=== PATIENT | female | born 1940 | race Asian ===

== ENCOUNTER → 2016-11-30 | Outpatient (CLI) | payer MEDICARE, OTHER ==
[~2016-11-30] MED LIST: CAND32TA2 PO; ROSU20TA PO; SITA1TAB7 PO; SYN75 PO
--- NOTE | 2016-11-30 12:41 | RADRPT ---
PROCEDURE: XR bilateral knees. CLINICAL INDICATION: Knee pain TECHNIQUE: AP weightbearing, PA weightbearing, lateral weightbearing and sunrise views of each kne e are available for review. COMPARISON: None available FINDINGS: Right knee: There is severe osteoarthrosis involving the right medial tibial femoral compartment, moderate osteo arthrosis involving the patellofemoral compartment and mild osteoarthrosis involving the lateral tib ial femoral compartment .This is associated with joint space narrowing, subchondral sclerosis and os teophytosis. There is a small suprapatellar joint effusion Left knee: There is severe osteoarthrosis involving the left medial tibial femoral compartment, moderate osteoa rthrosis involving the patellofemoral compartment and mild osteoarthrosis involving the lateral tibi al femoral compartment. This is associated with joint space narrowing, subchondral sclerosis and ost eophytosis. There is a small suprapatellar joint effusion There is otherwise normal mineralization, architecture and alignment. No fractures are identified. No osseous lesions are identified. The soft tissues are unremarkable. IMPRESSION: Severe osteoarthrosis involving the right medial tibial femoral compartment, moderate osteoarthrosis involving the patellofemoral compartment and mild osteoarthrosis involving the lateral tibial femor al compartment Severe osteoarthrosis involving the left medial tibial femoral compartment, moderate osteoarthrosis involving the patellofemoral compartment and mild osteoarthrosis involving the lateral tibial femora l compartment. Small suprapatellar joint effusions RPTAT: HGDB .Alex Morgan MD, Date Time Electronically viewed and signed by .Alex Morgan MD, MD on 11/30/2016 12:41 .B/
== END | disposition home or self-care (01) ==
LOC: HKI 11:00
PROVIDERS: ATTEND Orthopaedic Surgery
DX: M25.561 Pain in right knee (principal); M25.562 Pain in left knee; M17.0 Bilateral primary osteoarthritis of knee
CPT/HCPCS: 20610; 73564; G0463; J7327

== ENCOUNTER → 2017-02-15 | Outpatient (CLI) | payer MEDICARE, OTHER ==
--- NOTE | 2017-02-15 14:44 | RADRPT ---
PROCEDURE: Limited x-ray of both lower extremities. CLINICAL INDICATION: Bilateral leg pain. TECHNIQUE: Single frontal view of both lower extremities was obtained from the hips to the calves. COMPARISON: None. FINDINGS: There are moderate degenerative changes of the hips with joint space narrowing and osteophytes. The re are severe degenerative changes of both knees with joint space narrowing, deformity, and osteophy sandra. Left is worse than right. IMPRESSION: 1. Moderate degenerative changes of the hips. 2. Severe degenerative changes of the knees with left worse than right. RPTAT: QQ .Filemon Baires MD, MD Date Time Electronically viewed and signed by .Filemon Baires MD, on 02/15/2017 14:44 .R/
== END | disposition home or self-care (01) ==
LOC: HKI 10:51
PROVIDERS: ATTEND Orthopaedic Surgery
DX: Z01.818 Encounter for other preprocedural examination (principal); M16.0 Bilateral primary osteoarthritis of hip; M17.11 Unilateral primary osteoarthritis, right knee
CPT/HCPCS: 77073

== ENCOUNTER 2017-02-21 09:36 | Inpatient (IN) | payer MEDICARE, OTHER ==
[~2017-02-21] VITALS: Ht 152.4 cm; Wt 91.6 kg
[2017-02-21] VITALS (17 sets, daily range): BP systolic 141–186; BP diastolic 52–74; PULSE 58–76; RESP 11–22; Ht 152.4 cm; Wt 91.6 kg
[~2017-02-21 09:36] MED LIST changes: +BUPIVACAINE LIPOSOME/PF 266 MG/20 ML VIAL INFIL ONE; +CEFAZOLIN 2GM/50 ML (PMX) 50 ML X1 BEFORE INCISION IVPB ONE; +CELECOXIB 400 MG PO X1 DOSE PO ONE; +PAIN COCKTAIL-CEFUROXIME IRR ONE; +PREGABALIN 300 MG PO X1 PO ONE; +PROPOFOL 1000 MG INJ ONE; +TRANEXAMIC ACID 920 MG in SOD CHLORIDE 0.9% 100 ML IVPB ONE; +TRANEXAMIC ACID 920 MG in SOD CHLORIDE 0.9% 90.8 ML IV ONE; +oxyCODONE (CR) 10 MG TAB [oxyCONTIN] X1 DOSE PO ONE; +traMADOL 50 MG TAB X 1 DOSE PO ONE
[2017-02-21] MEDS ORDERED: CRES10 PO (10:19)
[2017-02-21] MEDS ORDERED: METF500T3 PO (10:21)
[2017-02-21] MEDS ORDERED: ALEN70TA30 PO (10:22)
[2017-02-21] MEDS ORDERED: ROCURONIUM 50 MG INJ ONE (11:02)
[2017-02-21] MEDS ORDERED: ONDANSETRON 4 MG INJ ONE (11:02)
[2017-02-21] MEDS ORDERED: NEOSTIGMINE 3 MG/3 ML SYRINGE ONE (11:02)
[2017-02-21] MEDS ORDERED: MIDAZOLAM 1 MG/ML 2 ML INJ ONE (11:02)
[2017-02-21] MEDS ORDERED: GLYCOPYRROLATE 0.4 MG INJ ONE (11:02)
[2017-02-21] MEDS ORDERED: PROPOFOL 20 ML ONE (11:02)
[2017-02-21] MEDS ORDERED: FENTAnyl 50 MCG/ML VIAL ONE (11:02)
[2017-02-21] MEDS ORDERED: CEFAZOLIN 1 GM INJ ONE (11:02)
[2017-02-21] MEDS ORDERED: DEXAMETHASONE 4 MG/ML 1 ML INJ ONE (11:02)
[2017-02-21] MEDS ORDERED: SODIUM CL BACTERIOSTATIC 30 ML INJ ONE (11:26)
[2017-02-21] MEDS ORDERED: POLYMYXIN B 500000 UNIT INJ ONE (11:26)
--- NOTE | 2017-02-21 11:56 | HPN ---
Date/Time of Note Date/Time of Note DATE: 02/21/17 TIME: 11:55 Interval H&P Admission Note Pt. seen H&P reviewed: No system changes No changes from H&P on 02/08/17 by NANY Shi MD Feb 21, 2017 11:56
[2017-02-21] MEDS: LACTATED RINGER'S 1,000 ML IV SCH ×4 (12:15→23:10)
[2017-02-21] MEDS: VANCOMYCIN 1 GM INJ ONE ×2 (13:26→13:33)
[2017-02-21] MEDS ORDERED: BACITRACIN 50000 UNITS INJ ONE (13:28)
[2017-02-21] MEDS ORDERED: LABETALOL HCL 20MG INJ IV PRN (14:00)
[2017-02-21] MEDS ORDERED: OXYCODONE/ACETAMINOPHEN (5/325) TAB PO PRN ×2 (14:00)
[2017-02-21] MEDS ORDERED: DIPHENHYDRAMINE 50 MG INJ IV PRN (14:00)
[2017-02-21] MEDS ORDERED: TRIMETHOBENZAMIDE 100 MG/ML VIAL IM PRN (14:00)
[2017-02-21] MEDS ORDERED: FENTAnyl 50 MCG/ML VIAL IV PRN ×3 (14:00)
[2017-02-21] MEDS ORDERED: EPHEDrine SULFATE 50 MG/5 ML SYG IV PRN (14:00)
[2017-02-21] MEDS ORDERED: MEPERIDINE 25 MG INJ IV PRN (14:00)
[2017-02-21] MEDS ORDERED: hydrALAzine 20 MG INJ IV PRN (14:00)
[2017-02-21] MEDS ORDERED: ONDANSETRON 4 MG INJ IV PRN ×2 (14:00→15:00)
[2017-02-21] MEDS ORDERED: MIDAZOLAM 1 MG/ML 2 ML INJ IV PRN (14:00)
[2017-02-21] MEDS ORDERED: HYDROmorphONE (0.2 MG/ML) 10ML SYG IV PRN ×3 (14:00)
[2017-02-21] MEDS ORDERED: SUGAMMADEX SODIUM 200 MG/2 ML VIAL IV ONE (14:12)
--- NOTE | 2017-02-21 14:59 | OPR ---
Date/Time of Note Date/Time of Note DATE: 02/21/17 TIME: 14:52 Operative Report Procedure Description DATE: 02/21/2017 PREOPERATIVE DIAGNOSIS: Right knee osteoarthritis POSTOPERATIVE DIAGNOSIS: Right knee osteoarthritis OPERATION PERFORMED: Right total knee arthroplasty. SURGEON: Nany Boudreaux MD TOOL AND DIE DESIGNER: Dakotah Lockhart PA-C COMPONENTS USED: DePuy attune size 4 femoral component, size 4 tibial baseplate , 6 mm polyethylene insert, 35 patella button ANESTHESIA: Spinal plus general endotracheal intubation, plus femoral nerve catheter. ANESTHESIOLOGIST: Chava Allen M.D. TOURNIQUET TIME: 59 minutes. ESTIMATED BLOOD LOSS: 50 cc INTRAVENOUS FLUIDS: 2000 cc of crystalloid SPECIMENS: Bone and soft tissue. DRAINS: Hemovac x1. COMPLICATIONS: None. DISPOSITION: The patient tolerated the procedure well and was taken to the recovery room in stable condition. INDICATIONS: The patient is a 76-year-old woman who has had worsening pain in her right knee with radiographic evidence of severe osteoarthritis. She has failed nonsurgical means of treatment to control her pain including activity modifications, pain medications, and intra-articular injections. Despite these measures she has had worsening pain and I feel she will benefit from a total knee arthroplasty. The risks, benefits, and alternatives of the procedure were explained in detail to the patient. I explained the risks of the surgery to include but not be limited to, bleeding and possible need for blood transfusion; infection; pain; stiffness; neurovascular injury with possible numbness, weakness, and/or paralysis anywhere from the knee down to the toes; fracture; instability; dislocation; wear and/or loosening of the prosthesis and possible need for future revision; blood clots; pulmonary embolism; and anesthetic complications such as heart attack, stroke, GI bleed, pneumonia, and/or . Ample time was allowed for the patient to ask questions, all of which were addressed and answered. The patient understood the risks involved and wished to proceed. Informed consent was signed prior to the procedure. PROCEDURE: The patient's right knee was initialed with a marking pen in the preoperative area to identify the correct operative site. The patient was brought to the operating room and transferred from the [facility] to the operating table where a spinal anesthetic was administered. The patient was then anesthetized and intubated. A Parker catheter was placed. A timeout was performed to confirm that the right leg was the correct operative site. The patient was given 2 g of Ancef within one hour prior to the procedure. A tourniquet was placed on the operative proximal thigh. The operative knee and lower extremity were prepped and draped in the usual sterile fashion. The operative lower extremity was elevated and exsanguinated with an Esmarch tourniquet. The proximal thigh tourniquet was inflated to 300 mmHg. The knee was flexed. A midline incision was made and carried down through the subcutaneous tissue and fat with sharp dissection. Limited medial and lateral flaps were raised. A median parapatellar arthrotomy approach was performed. Synovial fluid was normal in color and consistency. The patella was everted and the knee flexed. There were severe tricompartmental osteoarthritic changes noted. A medial release was performed at the joint line to the midcoronal plane. The ACL and PCL and remnants of the menisci were excised. The stepped drill was used to open up the femoral canal which was irrigated and sucked dry. The intramedullary guide david was passed up the femur, and the distal cutting block was pinned into place for a 6 degree valgus cut, taking 10 mm of bone off distally. The oscillating saw was used to make the cut. The tibia was subluxed anteriorly. The tibial cutoff jig was placed over the center of the talus distally and over the junction of the medial and middle third of the tibial tubercle proximally. The guide was pinned into place and the oscillating saw was used to make the cut. The tibia was sized. The extension gap was checked and accommodated a 6 mm spacer block with the knee in full extension. There was no varus or valgus instability. At this point, the femur was sized with the posterior referencing guide. Two holes were drilled in 3 degrees of external rotation. The two holes were in line with the transepicondylar axis, perpendicular to Juan Luis's line, and in line with the tibial cutoff jig brought up with the knee flexed 90 degrees and tensed with 2 lamina spreaders, suggesting the femoral rotation was correct. The four-in-one cutting block was pinned into place. The anterior and posterior cuts and chamfer cuts were made with the oscillating saw. The flexion gap was checked and accommodated the 6 mm spacer block at 90 degrees. There was no varus or valgus instability, suggesting the flexion and extension gaps were now equal. The central box was cut out on the femur. The tibia was drilled and punched in proper rotation. Trial components were placed into position with a trial insert. The patella was cut down to 14 mm and sized. Three holes were drilled and the trial button placed in position. With all the trials now in place, the knee was taken through range of motion and came to full extension as evidenced by the fact that with the foot on my abdomen and axial loading, there was no tendency for the knee to flex. The knee was able to be flexed to 125 degrees with good patellar tracking with no lateral tilt or subluxation. At this point, I was satisfied with the overall range of motion, stability, and patellar tracking. The trials were removed. The real components were opened. Two bags of cement were mixed, one with and one without premixed antibiotic. The knee was irrigated with antibiotic saline and sucked dry. Once the cement was in a doughy stage, the real components were cemented into place. The knee was held in full extension, and the patellar component was held with a patellar clamp. All excess cement was removed with curettes. As the cement was hardening, the synovial/capsular layer was infiltrated with a mixture of 150 mg of 0.5% Bupivacaine, 8 mg of Duramorph, 300 mcg of epinephrine, 30 mg of Toradol, 100 mcg of clonidine, 750 mg of cefuroxime and 86 mL of normal saline, followed by an injection of 266 mg of liposomal Bupivacaine. A Hemovac drain was placed in the deep portion of the wound and brought out the anterolateral thigh. Once the cement was completely hardened, the trial liner was removed, and the real insert was opened. The tourniquet was let down, and there was good hemostasis. The knee was then irrigated with a mixture of betadine/saline and then antibiotic saline with pulsatile lavage. The real insert was impacted into the tibia and reduced onto to the femur. The arthrotomy was closed with a few interrupted #1 Ethibond in a figure-of- eight fashion, and then closed in a watertight fashion with a running #2 Stratafix suture. Knee flexion was checked against gravity and came to 125 degrees. The subcutaneous layer was irrigated and closed with 2-0 Statafix, and then 3-0 Vicryl and then jose de jesus on the skin. The wound was covered with an occlusive dressing, and secured with cast padding and a bias dressing. The drain was secured with 3-0 nylon. The sponge and needle counts were correct at the end of the case. The patient was then awakened, extubated, and taken to the recovery room in stable condition. NANY BOUDREAUX MD Feb 21, 2017 14:58
[2017-02-21] MEDS ORDERED: ASPIRIN (EC) 325 MG TAB PO ONE (15:00)
[2017-02-21] MEDS ORDERED: NA PHOSPHATE/BIPHOS 133 ML ENEMA PR PRN (15:00)
[2017-02-21] MEDS ORDERED: HYDROCODONE/APAP (7.5/325) TAB PO PRN (15:00)
[2017-02-21] MEDS ORDERED: MAGNESIUM HYDROXIDE 30ML CUP PO PRN (15:00)
[2017-02-21] MEDS ORDERED: DIPHENHYDRAMINE 25 MG CAP PO PRN (15:00)
[2017-02-21] MEDS ORDERED: HYDROmorphONE 1 MG/ML SYG IV PRN (15:00)
[2017-02-21] MEDS ORDERED: BISACODYL 10 MG SUPP PR PRN (15:00)
[2017-02-21] MEDS ORDERED: NACL 0.9% 3 ML SYG IV SCH (15:00)
[2017-02-21 15:23] LABS: HEMATOCRIT 34.9 % (37.0-47.0); HEMOGLOBIN 11.1 g/dl (12.0-16.0)
--- NOTE | 2017-02-21 15:26 | PN ---
Date/Time of Note Date/Time of Note DATE: 02/21/17 TIME: 15:25 Assessment/Plan Lines/Catheters IV Catheter Type (from Nrsg): Peripheral IV Assessment/Plan Assessment/Plan Stable in PACU, s/p right TKA -continue Ancef -pain meds as needed -ASA/SCDs -OOB with PT -medicine to manage diabetic control -check AM labs -monitor drain -d/c kidd in AM XR of the right knee is pending at this time Subjective 24 Hr Interval Summary Stable in PACU. Denies pain. Moving all extremities. Exam/Review of Systems Vital Signs Vitals Vital Signs Date Time Temp Pulse Resp B/P Pulse Ox O2 Delivery O2 Flow Rate FiO2 02/21/17 15:01 98.4 02/21/17 14:50 72 22 148/63 100 Nasal Cannula 2.0 Exam Free Text/Dictation Hemovac: minimal Dressing dry Incision clean, dry, and intact without redness or drainage Thigh soft 5/5 Quadriceps, Tibialis Anterior, EHL, Gastroc, Soleus, Peroneals Normal sensation Palpable DT/PT, CR <2 sec No distal edema WILLIAM GARCÍA PA-C Feb 21, 2017 15:26
[2017-02-21] MEDS: CEFAZOLIN 2 GM/50 ML (PMX) 50 ML IVPB SCH ×2 (15:36→23:00)
[2017-02-21 15:43] LABS: CALCIUM 8.4 mg/dl (8.4-10.2); CREATININE 1.1 mg/dl (0.44-1.00); POTASSIUM 4.3 mmol/L (3.5-5.1)
[2017-02-21] MEDS ORDERED: EXPAREL NOTE (BUPIVICAINE LIPOSOMAL) XX SCH (16:00)
--- NOTE | 2017-02-21 16:04 | RADRPT ---
PROCEDURE: Right knee radiographs. CLINICAL INDICATION: Right knee pain. Postop. TECHNIQUE: Two views. Frontal and lateral. COMPARISON: 11/30/2016. FINDINGS: There is no fracture or dislocation. Anterior skin jose de jesus and surgical drain are noted. There is a total right knee arthroplasty which appears satisfactory. There is no lytic or blastic lesion. There is no joint effusion. IMPRESSION: 1. Satisfactory postoperative appearance of the right knee. RPTAT: QQ .Filemon Baires MD, MD Date Time Electronically viewed and signed by .Filemon Baires MD, MD on 02/21/2017 16:03 .R/
[2017-02-21] MEDS ORDERED: GLUCOSE GEL 15 GRAM TUBE BUCCAL PRN (17:00)
[2017-02-21] MEDS ORDERED: GLUCAGON 1 MG INJ IM PRN (17:00)
[2017-02-21] MEDS ORDERED: DEXTROSE 50% 50 ML SYRINGE IV PRN ×2 (17:00)
[2017-02-21] MEDS ORDERED: GLUCOSE GEL 15 GRAM TUBE PO PRN ×2 (17:00)
[2017-02-21] MEDS: traMADol 50 MG TAB PO SCH ×2 (17:57→23:49)
[2017-02-21] MEDS: PANTOPRAZOLE (EC) 40 MG TAB PO SCH (18:00)
[2017-02-21] MEDS ORDERED: TRANEXAMIC ACID 920 MG in SOD CHLORIDE 0.9% 100 ML IVPB ONE ×2 (18:00→21:00)
[2017-02-21] MEDS: INSULIN ASPART [NOVOLOG] 3 ML PEN SC SCH (21:00)
[2017-02-21] MEDS: DOCUSATE SODIUM 100 MG CAP PO SCH (21:51)
[2017-02-21] MEDS: PREGABALIN 50 MG CAP PO SCH (21:51)
[2017-02-21] MEDS: ATORVASTATIN 40 MG TAB PO SCH (21:51)
[2017-02-22] MEDS: LACTATED RINGER'S 1,000 ML IV SCH (04:46)
[2017-02-22] MEDS: PANTOPRAZOLE (EC) 40 MG TAB PO SCH ×2 (05:44→17:50)
[2017-02-22] MEDS: traMADol 50 MG TAB PO SCH ×5 (05:44→23:35)
[2017-02-22] MEDS: CEFAZOLIN 2 GM/50 ML (PMX) 50 ML IVPB SCH (05:44)
[2017-02-22 05:50] LABS: HEMATOCRIT 34.2 % (37.0-47.0); HEMOGLOBIN 11.1 g/dl (12.0-16.0)
[2017-02-22 06:15] LABS: CREATININE 1.08 mg/dl (0.44-1.00)
[2017-02-22 06:16] VITALS: BP 123/55; PULSE 66; RESP 18
[2017-02-22 07:00] VITALS: BP 113/56; RESP 18
[2017-02-22] MEDS: INSULIN ASPART [NOVOLOG] 3 ML PEN SC SCH ×4 (07:20→20:50)
--- NOTE | 2017-02-22 07:23 | PDOCDIS ---
Discharge Instructions DIAGNOSIS Discharge Diagnosis s/p right TKA CONDITION Patient Condition: Good HOME CARE INSTRUCTIONS: Diet Instructions: Regular ACTIVITY: Activity Restrictions: Slowly Increase Activity Rest between Activity Avoid heavy lifting Do not operate Machinery Do not operate Power Tool Avoid Heavy Housework Keep Limb Elevated Bathing Restrictions: Shower FOLLOW UP/APPOINTMENTS Follow-up Plan follow up in the office on 03/04/17 OTHER ORDERS: Other Orders: S/P TKA Physical Therapy: Three times per week at home x 2 weeks Daily in Rehab/SNF WB STATUS: WBAT 1. Strengthening exercises for both upper and un-operated lower extremities. 2. Gait training with front wheeled walker 3. Active range of motion exercises to operative knee. 4. When not working on knee range of motion exercises, distal towel roll under operative ankle/distal calf to promote full extension. 5. DO NOT PUT ANYTHING BEHIND OPERATIVE KNEE!!! 6. Quadriceps and hamstring strengthening. 7. May switch to cane in contra lateral hand 6 weeks after surgery. 8. Physical Therapy can open case if nursing is not available. 9. Use Ice Machine as instructed from date of surgery while at rest 3X/day. 10. Patient requires mobile SCDs to reduce risk of developing DVT following TKA. Patient will use the mobile SCDs for 30 days postoperatively. Bathing assistance by home health aide twice weekly if Medicare patient. Occupational Therapy: Evaluation for assistive devices and ADL training. Wound Care: Keep incision dry & covered with Tegaderm until first visit with Dr. Queen Anticoagulation Orders: Enteric Coated Aspirin 325 mg po bid x 6 weeks from date of surgery Follow-up:Call for an appointment with Dr. Queen in 1 week after discharged from hospital at DME Orders: AYLIN, 3-in-1 Commode, Polar ice machine, Mobile SCDs WILLIAM GARCÍA PA-C Feb 22, 2017 07:23
[2017-02-22] MEDS ORDERED: ASPI325T32 PO (07:24)
[2017-02-22] MEDS ORDERED: HYDR-3605 PO (07:24)
[2017-02-22] MEDS ORDERED: PANT40TA4 PO (07:24)
[2017-02-22] MEDS ORDERED: PREG50CA PO (07:24)
[2017-02-22] MEDS ORDERED: TRAM50TA2 PO (07:24)
[2017-02-22] MEDS: ASPIRIN (EC) 325 MG TAB PO SCH ×2 (08:16→20:50)
[2017-02-22] MEDS: LOSARTAN 50 MG TAB PO SCH (08:17)
[2017-02-22] MEDS: LEVOTHYROXINE 75 MCG TAB PO SCH (08:17)
[2017-02-22] MEDS: PREGABALIN 50 MG CAP PO SCH ×2 (08:17→20:53)
[2017-02-22] MEDS: DOCUSATE SODIUM 100 MG CAP PO SCH ×2 (08:17→20:50)
[2017-02-22] MEDS: metFORMIN 500 MG TAB PO SCH ×2 (08:18→18:42)
--- NOTE | 2017-02-22 09:50 | CONS ---
Date/Time of Note Date/Time of Note DATE: 02/22/17 TIME: 09:48 Assessment/Plan Assessment/Plan Additional Assessment/Plan 1. Doing well psot op right knee replacement. 2. HBP, controlled 3. DM, sugars acceptable 4. Mild hyponatremia, Mora ordered and IV changed, mild fluid restriction ordered Consultation Date/Type/Reason Admit Date/Time Feb 21, 2017 at 09:36 Initial Consult Date Detailed Summary Respiratory: No cough, No shortness of breath Gastrointestinal: no complaints Genitourinary: no complaints Musculoskeletal: bone/joint pain (mild right knee pain) Exam/Review of Systems Vital Signs Vitals Vital Signs Date Time Temp Pulse Resp B/P Pulse Ox O2 Delivery O2 Flow Rate FiO2 02/22/17 07:00 97.5 63 18 113/56 98 02/22/17 06:16 Room Air 02/21/17 14:50 2.0 Intake and Output 02/21/17 02/21/17 02/22/17 15:00 23:00 07:00 Intake Total 0 ml 300 ml 1150 ml Output Total 345 ml 1075 ml 620 ml Balance -345 ml -775 ml 530 ml Exam Neck: No jvd Respiratory: clear to auscultation Cardiovascular: regular rate and rhythm Gastrointestinal: soft Extremities: No edema (and no calf tend) Results Result Diagram: 02/22/17 0458 02/22/17 0458 Results 24 hrs Laboratory Tests Test 02/21/17 11:37 02/21/17 14:52 02/21/17 15:15 02/21/17 21:54 Bedside Glucose 107 131 165 Hemoglobin 11.1 L Hematocrit 34.9 L Sodium Level 137 Potassium Level 4.3 Chloride Level 109 Carbon Dioxide Level 21 Anion Gap 11 Blood Urea Nitrogen 19 Creatinine 1.10 H Glucose Level 127 Calcium Level 8.4 Test 02/22/17 04:58 02/22/17 07:59 Hemoglobin 11.1 L Hematocrit 34.2 L Sodium Level 132 L Potassium Level 5.0 Chloride Level 107 Carbon Dioxide Level 21 Anion Gap 9 Blood Urea Nitrogen 20 Creatinine 1.08 H Glucose Level 133 Calcium Level 8.0 L Bedside Glucose 136 Medications Medications Current Medications Levothyroxine Sodium (Synthroid) 75 mcg DAILY PO Last administered on t 08:17; Admin Dose 75 MCG; Start 02/22/17 at 09:00 Losartan Potassium (Cozaar) 100 mg DAILY PO ; Start 02/22/17 at 09:00 Atorvastatin Calcium 40 mg 40 mg DAILY@21 PO Last administered on 02/21/17 21: 51; Admin Dose 40 MG; Start 02/21/17 at 21:00 Lactated Ringer's (Lr) 1,000 ml @ 125 mls/hr Q8H IV Last administered on 04:46; Admin Dose 125 MLS/HR; Start 02/21/17 at 14:56 Tramadol HCl (Ultram) 50 mg Q6 PO Last administered on 02/22/17 05:44; Admin Dose 50 MG; Start 02/21/17 at 12:00; Stop 02/24/17 at 11:59 Hydromorphone HCl (Dilaudid) 1 mg Q3H PRN IV PAIN LEVEL 8-10; Start 02/21/17 at 15:00 Ondansetron HCl (Zofran Inj) 4 mg Q6H PRN IV NAUSEA AND/OR VOMITING; Start at 15:00 Bisacodyl (Dulcolax Supp) 10 mg Q12H PRN [place] CONSTIPATION; Start 02/21/17 at 15: 00 Magnesium Hydroxide (Milk Of Mag) 30 ml BID PRN PO CONSTIPATION; Start at 15:00 Sodium Biphosphate/ Sodium Phosphate (Fleet Enema) 133 ml DAILY PRN [place] CONSTIPATION; Start 02/21/17 at 15:00 Docusate Sodium (Colace) 100 mg BID PO Last administered on 02/22/17 08:17; Admin Dose 100 MG; Start 02/21/17 at 21:00 Diphenhydramine HCl (Benadryl) 25 mg Q6H PRN PO PRURITUS; Start 02/21/17 at 15: 00 Acetaminophen/ Hydrocodone Bitart ([place] (7.5-325)) 1 tab Q4H PRN PO PAIN LEVEL 1-3; Start 02/21/17 at 15:00 Acetaminophen/ Hydrocodone Bitart ([place] (7.5-325)) 2 tab Q4H PRN PO PAIN LEVEL 4-7; Start 02/21/17 at 15:00 Aspirin (Ecotrin) 325 mg BID PO Last administered on 02/22/17 08:16; Admin Dose 325 MG; Start 02/22/17 at 09:00 Pantoprazole (Protonix Tab) 40 mg BID@06,18 PO Last administered on 02/22/17 05:44; Admin Dose 40 MG; Start 02/21/17 at 18:00 Pregabalin (Lyrica) 50 mg BID PO Last administered on 02/22/17 08:17; Admin Dose 50 MG; Start 02/21/17 at 21:00 Miscellaneous Information 1 ea NOTE XX ; Start 02/21/17 at 17:00 Glucose (Glutose) 15 gm Q15M PRN PO DECREASED GLUCOSE; Start 02/21/17 at 17:00 Glucose (Glutose) 22.5 gm Q15M PRN PO DECREASED GLUCOSE; Start 02/21/17 at 17: 00 Dextrose (D50w Syringe) 25 ml Q15M PRN IV DECREASED GLUCOSE; Start 02/21/17 at 17:00 Dextrose (D50w Syringe) 50 ml Q15M PRN IV DECREASED GLUCOSE; Start 02/21/17 at 17:00 Glucagon (Glucagen) 1 mg Q15M PRN IM DECREASED GLUCOSE; Start 02/21/17 at 17:00 Glucose (Glutose) 15 gm Q15M PRN BUCCAL DECREASED GLUCOSE; Start 02/21/17 at 17 :00 TAN SCHUMACHER MD Feb 22, 2017 09:50
[2017-02-22 09:51] LABS: ADD UMIC YES; UR ASCORBIC ACID NEGATIVE (NEGATIVE); UR BILIRUBIN (Dip) NEGATIVE (NEGATIVE); UR BLOOD (Dip) 1+ mg/dL (NEGATIVE); UR CLARITY CLEAR (CLEAR); UR COLOR YELLOW (YELLOW); UR GLUCOSE (Dip) NEGATIVE (NEGATIVE); UR KETONES (Dip) NEGATIVE (NEGATIVE); UR LEUKOCYTE ESTERASE (Dip) NEGATIVE Leu/ul (NEGATIVE); UR NITRITE (Dip) NEGATIVE (NEGATIVE); UR RBC 10 /HPF (0-5); UR SPECIFIC GRAVITY (Dip) 1.023 (1.003-1.030); UR TOTAL PROTEIN (Dip) 1+ mg/dl (NEGATIVE); UR UROBILINOGEN (Dip) NEGATIVE (NEGATIVE)
[2017-02-22] MEDS: SOD CHLORIDE 0.9% 1,000 ML IV SCH ×3 (10:00→23:00)
--- NOTE | 2017-02-22 12:09 | PN ---
Date/Time of Note Date/Time of Note DATE: 02/22/17 TIME: 12:07 Assessment/Plan Lines/Catheters IV Catheter Type (from Nrsg): Peripheral IV Parker in Place (from Nrsg): Yes Assessment/Plan Assessment/Plan Stable POD #1, s/p right TKA -d/c Ancef -pain meds as needed -ASA/SCDs -OOB with PT -check AM labs -drain removed -discharge planning. Will plan to go home upon discharge Subjective 24 Hr Interval Summary No acute overnight events. Denies pain. Did not start PT yesterday. VSS, afebrile. Will plan to go home upon discharge. Exam/Review of Systems Vital Signs Vitals Vital Signs Date Time Temp Pulse Resp B/P Pulse Ox O2 Delivery O2 Flow Rate FiO2 02/22/17 07:00 97.5 63 18 113/56 98 02/22/17 06:16 Room Air 02/21/17 14:50 2.0 Intake and Output 02/21/17 02/21/17 02/22/17 15:00 23:00 07:00 Intake Total 0 ml 300 ml 1150 ml Output Total 345 ml 1075 ml 620 ml Balance -345 ml -775 ml 530 ml Exam Free Text/Dictation Dressing dry Incision clean, dry, and intact without redness or drainage Thigh soft 5/5 Quadriceps, Tibialis Anterior, EHL, Gastroc, Soleus, Peroneals Normal sensation Palpable DT/PT, CR <2 sec No distal edema Results Result Diagram: 02/22/17 0458 02/22/17 0458 WILLIAM GARCÍA PA-C Feb 22, 2017 12:08
[2017-02-22 12:17] VITALS: BP 135/63; PULSE 63; RESP 16
[2017-02-22] MEDS: HYDROCODONE/APAP (7.5/325) TAB PO PRN (15:00)
--- NOTE | 2017-02-22 18:25 | RADRPT ---
PROCEDURE: US right lower extremity veins. CLINICAL INDICATION: Right leg pain and swelling. TECHNIQUE: Multiple longitudinal and transverse images of the right lower extremity veins were obt ained with tobin scale and color Doppler imaging. The common femoral vein, femoral vein, and poplitea l vein were evaluated. 2D grayscale measurements with compression sonography, pulsed Doppler, color Doppler, and pulsed Doppler with augmentation. COMPARISON: No prior studies are available for comparison. FINDINGS: The right common femoral, femoral and popliteal veins are normally compressible throughout. Color f low demonstrates normal filling of the vessels. Normal waveforms are visualized and there is normal response to augmentation. IMPRESSION: 1. No evidence of deep vein thrombosis involving the right lower extremity. RPTAT: QQ .Filemon Baires MD, MD Date Time Electronically viewed and signed by .Filemon Baires MD, on 02/22/2017 18:25 .R/
[2017-02-22] MEDS: ATORVASTATIN 40 MG TAB PO SCH (20:50)
[2017-02-23 05:48] LABS: HEMATOCRIT 32.7 % (37.0-47.0); HEMOGLOBIN 10.5 g/dl (12.0-16.0)
[2017-02-23] MEDS: PANTOPRAZOLE (EC) 40 MG TAB PO SCH ×2 (05:49→17:52)
[2017-02-23] MEDS: traMADol 50 MG TAB PO SCH ×4 (05:50→23:41)
[2017-02-23] MEDS: SOD CHLORIDE 0.9% 1,000 ML IV SCH ×2 (06:00→16:28)
[2017-02-23 07:00] LABS: CALCIUM 7.8 mg/dl (8.4-10.2); CREATININE 1.21 mg/dl (0.44-1.00); MAGNESIUM 1.5 mg/dl (1.7-2.5); POTASSIUM 5.5 mmol/L (3.5-5.1)
[2017-02-23] MEDS: INSULIN ASPART [NOVOLOG] 3 ML PEN SC SCH ×4 (07:20→21:00)
[2017-02-23 08:06] VITALS: BP 108/54; RESP 14
[2017-02-23] MEDS: DOCUSATE SODIUM 100 MG CAP PO SCH ×2 (08:54→21:15)
[2017-02-23] MEDS: PREGABALIN 50 MG CAP PO SCH ×2 (08:55→21:15)
[2017-02-23] MEDS: ASPIRIN (EC) 325 MG TAB PO SCH ×2 (08:55→21:16)
[2017-02-23] MEDS: LOSARTAN 50 MG TAB PO SCH (08:55)
[2017-02-23] MEDS: LEVOTHYROXINE 75 MCG TAB PO SCH (08:55)
[2017-02-23] MEDS: metFORMIN 500 MG TAB PO SCH ×2 (08:59→17:51)
[2017-02-23] MEDS: HYDROCODONE/APAP (7.5/325) TAB PO PRN ×3 (09:05→22:12)
--- NOTE | 2017-02-23 10:47 | PN ---
Date/Time of Note Date/Time of Note DATE: 02/23/17 TIME: 10:46 Assessment/Plan Lines/Catheters IV Catheter Type (from Nrsg): Peripheral IV Parker in Place (from Nrsg): Yes Assessment/Plan Assessment/Plan POD # 2. Stable. -OOB with PT -Pain meds -ASA/SCDs -Plan for d/c to home tomorrow Subjective 24 Hr Interval Summary Doing well. Had some right calf "tightness" last evening. Doppler done and negative for DVT. Feels better this AM. Exam/Review of Systems Vital Signs Vitals Vital Signs Date Time Temp Pulse Resp B/P Pulse Ox O2 Delivery O2 Flow Rate FiO2 02/23/17 08:06 98.0 74 14 108/54 100 02/22/17 12:17 Room Air 02/21/17 14:50 2.0 Intake and Output 02/22/17 02/22/17 02/23/17 15:00 23:00 07:00 Intake Total 1350 ml 1160 ml Output Total 3 ml Balance 1350 ml 1157 ml Exam Free Text/Dictation Dressing dry Incision clean, dry, and intact without redness or drainage 5/5 Tibialis Anterior, EHL, Gastroc Soleus, Peroneals Normal sensation Palpable DP/PT, CR < 2 Sec No distal edema Calf soft, negative Ari's Results Result Diagram: 02/23/17 0501 02/23/17 0435 NANY BOUDREAUX MD Feb 23, 2017 10:47
--- NOTE | 2017-02-23 11:29 | CONS ---
Date/Time of Note Date/Time of Note DATE: 02/23/17 TIME: 11:26 Assessment/Plan Assessment/Plan Additional Assessment/Plan 1. stable post op course 2. HBP, controlled 3. DM, sugars controlled 4. Hyponatremia - resolved; d/c fluid restriction Consultation Date/Type/Reason Admit Date/Time Feb 21, 2017 at 09:36 Initial Consult Date 24 HR Interval Summary Free Text/Dictation Doing well, no acute complaints. Exam/Review of Systems Vital Signs Vitals Vital Signs Date Time Temp Pulse Resp B/P Pulse Ox O2 Delivery O2 Flow Rate FiO2 02/23/17 08:06 98.0 74 14 108/54 100 02/22/17 12:17 Room Air 02/21/17 14:50 2.0 Intake and Output 02/22/17 02/22/17 02/23/17 15:00 23:00 07:00 Intake Total 1350 ml 1160 ml Output Total 3 ml Balance 1350 ml 1157 ml Exam Respiratory: clear to auscultation, normal air movement Cardiovascular: nl pulses, regular rate and rhythm Results Result Diagram: 02/23/17 0501 02/23/17 0435 Results 24 hrs Laboratory Tests Test 02/22/17 12:22 02/22/17 15:45 02/22/17 17:48 02/22/17 20:49 Bedside Glucose 152 123 115 Urine Random Sodium 44 Test 02/23/17 04:35 02/23/17 05:01 02/23/17 08:51 Sodium Level 137 Potassium Level 5.5 H Chloride Level 106 Carbon Dioxide Level 20 L Anion Gap 17 H Blood Urea Nitrogen 27 H Creatinine 1.21 H Glucose Level 92 # Calcium Level 7.8 L Phosphorus Level 3.0 Magnesium Level 1.5 L Hemoglobin 10.5 L Hematocrit 32.7 L Bedside Glucose 91 Medications Medications Current Medications Levothyroxine Sodium (Synthroid) 75 mcg DAILY PO Last administered on 08:55; Admin Dose 75 MCG; Start 02/22/17 at 09:00 Losartan Potassium (Cozaar) 100 mg DAILY PO Last administered on 02/23/17 08: 55; Admin Dose 100 MG; Start 02/22/17 at 09:00 Atorvastatin Calcium (Lipitor) 40 mg DAILY@21 PO Last administered on 20:50; Admin Dose 40 MG; Start 02/21/17 at 21:00 Tramadol HCl (Ultram) 50 mg Q6 PO Last administered on 02/23/17 05:50; Admin Dose 50 MG; Start 02/21/17 at 12:00; Stop 02/24/17 at 11:59 Hydromorphone HCl (Dilaudid) 1 mg Q3H PRN IV PAIN LEVEL 8-10; Start 02/21/17 at 15:00 Ondansetron HCl (Zofran Inj) 4 mg Q6H PRN IV NAUSEA AND/OR VOMITING; Start at 15:00 Bisacodyl (Dulcolax Supp) 10 mg Q12H PRN [place] CONSTIPATION; Start 02/21/17 at 15: 00 Magnesium Hydroxide (Milk Of Mag) 30 ml BID PRN PO CONSTIPATION; Start at 15:00 Sodium Biphosphate/ Sodium Phosphate (Fleet Enema) 133 ml DAILY PRN [place] CONSTIPATION; Start 02/21/17 at 15:00 Docusate Sodium (Colace) 100 mg BID PO Last administered on 02/23/17 08:54; Admin Dose 100 MG; Start 02/21/17 at 21:00 Diphenhydramine HCl (Benadryl) 25 mg Q6H PRN PO PRURITUS; Start 02/21/17 at 15: 00 Acetaminophen/ Hydrocodone Bitart ([place] (7.5-325)) 1 tab Q4H PRN PO PAIN LEVEL 1-3 Last administered on 02/23/17 09:05; Admin Dose 1 TAB; Start at 15:00 Acetaminophen/ Hydrocodone Bitart ([place] (7.5-325)) 2 tab Q4H PRN PO PAIN LEVEL 4-7; Start 02/21/17 at 15:00 Aspirin (Ecotrin) 325 mg BID PO Last administered on 02/23/17 08:55; Admin Dose 325 MG; Start 02/22/17 at 09:00 Pantoprazole (Protonix Tab) 40 mg BID@,18 PO Last administered on 02/23/17 05:49; Admin Dose 40 MG; Start 02/21/17 at 18:00 Pregabalin (Lyrica) 50 mg BID PO Last administered on 02/23/17 08:55; Admin Dose 50 MG; Start 02/21/17 at 21:00 Miscellaneous Information 1 ea NOTE XX ; Start 02/21/17 at 17:00 Glucose (Glutose) 15 gm Q15M PRN PO DECREASED GLUCOSE; Start 02/21/17 at 17:00 Glucose (Glutose) 22.5 gm Q15M PRN PO DECREASED GLUCOSE; Start 02/21/17 at 17: 00 Dextrose (D50w Syringe) 25 ml Q15M PRN IV DECREASED GLUCOSE; Start 02/21/17 at 17:00 Dextrose (D50w Syringe) 50 ml Q15M PRN IV DECREASED GLUCOSE; Start 02/21/17 at 17:00 Glucagon (Glucagen) 1 mg Q15M PRN IM DECREASED GLUCOSE; Start 02/21/17 at 17:00 Glucose 15 gm 15 gm Q15M PRN BUCCAL DECREASED GLUCOSE; Start 02/21/17 at 17:00 Sodium Chloride (NS) 1,000 ml @ 100 mls/hr Q10H IV Last administered on t 23:00; Admin Dose 100 MLS/HR; Start 02/22/17 at 10:00 SINCERE FUENTES MD Feb 23, 2017 11:29
[2017-02-23 19:05] VITALS: BP 140/63; RESP 18
[2017-02-23] MEDS: ATORVASTATIN 40 MG TAB PO SCH (21:15)
[2017-02-24] MEDS: SOD CHLORIDE 0.9% 1,000 ML IV SCH ×2 (02:00→12:00)
[2017-02-24] MEDS: HYDROCODONE/APAP (7.5/325) TAB PO PRN (02:45)
[2017-02-24] MEDS: PANTOPRAZOLE (EC) 40 MG TAB PO SCH (05:56)
[2017-02-24] MEDS: traMADol 50 MG TAB PO SCH (05:57)
[2017-02-24 06:02] LABS: HEMATOCRIT 32.8 % (37.0-47.0); HEMOGLOBIN 10.4 g/dl (12.0-16.0)
[2017-02-24 06:21] LABS: CREATININE 1.16 mg/dl (0.44-1.00); POTASSIUM 4.8 mmol/L (3.5-5.1)
[2017-02-24 07:45] VITALS: BP 136/60; RESP 18
[2017-02-24] MEDS: INSULIN ASPART [NOVOLOG] 3 ML PEN SC SCH ×2 (08:25→12:45)
[2017-02-24] MEDS: DOCUSATE SODIUM 100 MG CAP PO SCH (09:02)
[2017-02-24] MEDS: ASPIRIN (EC) 325 MG TAB PO SCH (09:02)
[2017-02-24] MEDS: PREGABALIN 50 MG CAP PO SCH (09:02)
[2017-02-24] MEDS: LEVOTHYROXINE 75 MCG TAB PO SCH (09:03)
[2017-02-24] MEDS: metFORMIN 500 MG TAB PO SCH (09:03)
[2017-02-24] MEDS: LOSARTAN 50 MG TAB PO SCH (09:03)
--- NOTE | 2017-02-24 10:03 | CONS ---
Date/Time of Note Date/Time of Note DATE: 02/24/17 TIME: 10:02 Assessment/Plan Assessment/Plan Additional Assessment/Plan 1. stable post op course 2. HBP, controlled 3. DM, sugars controlled 4. Hyponatremia - resolved; d/gali fluid restriction 5. Stable for discharge from medical standpoint Consultation Date/Type/Reason Admit Date/Time Feb 21, 2017 at 09:36 24 HR Interval Summary Free Text/Dictation Feeling well, ambulated yesterday and anticipating PT today Exam/Review of Systems Vital Signs Vitals Vital Signs Date Time Temp Pulse Resp B/P Pulse Ox O2 Delivery O2 Flow Rate FiO2 02/24/17 07:45 98.0 71 18 136/60 97 02/22/17 12:17 Room Air 02/21/17 14:50 2.0 Intake and Output 02/23/17 02/23/17 02/24/17 15:00 23:00 07:00 Intake Total 1600 ml 1430 ml Output Total 3 ml 2 ml Balance 1597 ml 1428 ml Exam Respiratory: clear to auscultation, normal air movement Cardiovascular: nl pulses, regular rate and rhythm Results Result Diagram: 02/24/17 0439 02/24/17 0439 Results 24 hrs Laboratory Tests Test 02/23/17 12:43 02/23/17 17:50 02/23/17 21:15 02/24/17 04:39 Bedside Glucose 96 109 118 Hemoglobin 10.4 L Hematocrit 32.8 L Sodium Level 136 Potassium Level 4.8 Chloride Level 108 Carbon Dioxide Level 23 Anion Gap 10 # Blood Urea Nitrogen 24 H Creatinine 1.16 H Glucose Level 94 Calcium Level 8.0 L Test 02/24/17 08:27 Bedside Glucose 85 Medications Medications Current Medications Levothyroxine Sodium (Synthroid) 75 mcg DAILY PO Last administered on 09:03; Admin Dose 75 MCG; Start 02/22/17 at 09:00 Losartan Potassium (Cozaar) 100 mg DAILY PO Last administered on 02/24/17 09: 03; Admin Dose 100 MG; Start 02/22/17 at 09:00 Atorvastatin Calcium (Lipitor) 40 mg DAILY@21 PO Last administered on 21:15; Admin Dose 40 MG; Start 02/21/17 at 21:00 Tramadol HCl (Ultram) 50 mg Q6 PO Last administered on 02/24/17 05:57; Admin Dose 50 MG; Start 02/21/17 at 12:00; Stop 02/24/17 at 11:59 Hydromorphone HCl (Dilaudid) 1 mg Q3H PRN IV PAIN LEVEL 8-10; Start 02/21/17 at 15:00 Ondansetron HCl (Zofran Inj) 4 mg Q6H PRN IV NAUSEA AND/OR VOMITING; Start at 15:00 Bisacodyl (Dulcolax Supp) 10 mg Q12H PRN [place] CONSTIPATION; Start 02/21/17 at 15: 00 Magnesium Hydroxide (Milk Of Mag) 30 ml BID PRN PO CONSTIPATION; Start at 15:00 Sodium Biphosphate/ Sodium Phosphate (Fleet Enema) 133 ml DAILY PRN [place] CONSTIPATION; Start 02/21/17 at 15:00 Docusate Sodium (Colace) 100 mg BID PO Last administered on 02/24/17 09:02; Admin Dose 100 MG; Start 02/21/17 at 21:00 Diphenhydramine HCl (Benadryl) 25 mg Q6H PRN PO PRURITUS; Start 02/21/17 at 15: 00 Acetaminophen/ Hydrocodone Bitart ([place] (7.5-325)) 1 tab Q4H PRN PO PAIN LEVEL 1-3 Last administered on 02/24/17 02:45; Admin Dose 1 TAB; Start at 15:00 Acetaminophen/ Hydrocodone Bitart ([place] (7.5-325)) 2 tab Q4H PRN PO PAIN LEVEL 4-7; Start 02/21/17 at 15:00 Aspirin (Ecotrin) 325 mg BID PO Last administered on 02/24/17 09:02; Admin Dose 325 MG; Start 02/22/17 at 09:00 Pantoprazole (Protonix Tab) 40 mg BID@,18 PO Last administered on 02/24/17 05:56; Admin Dose 40 MG; Start 02/21/17 at 18:00 Pregabalin (Lyrica) 50 mg BID PO Last administered on 02/24/17 09:02; Admin Dose 50 MG; Start 02/21/17 at 21:00 Miscellaneous Information 1 ea NOTE XX ; Start 02/21/17 at 17:00 Glucose (Glutose) 15 gm Q15M PRN PO DECREASED GLUCOSE; Start 02/21/17 at 17:00 Glucose (Glutose) 22.5 gm Q15M PRN PO DECREASED GLUCOSE; Start 02/21/17 at 17: 00 Dextrose (D50w Syringe) 25 ml Q15M PRN IV DECREASED GLUCOSE; Start 02/21/17 at 17:00 Dextrose (D50w Syringe) 50 ml Q15M PRN IV DECREASED GLUCOSE; Start 02/21/17 at 17:00 Glucagon (Glucagen) 1 mg Q15M PRN IM DECREASED GLUCOSE; Start 02/21/17 at 17:00 Glucose 15 gm 15 gm Q15M PRN BUCCAL DECREASED GLUCOSE; Start 02/21/17 at 17:00 Sodium Chloride (NS) 1,000 ml @ 100 mls/hr Q10H IV Last administered on 16:28; Admin Dose 100 MLS/HR; Start 02/22/17 at 10:00 SINCERE FUENTES MD Feb 24, 2017 10:02
--- NOTE | 2017-02-24 10:53 | PN ---
Date/Time of Note Date/Time of Note DATE: 02/24/17 TIME: 10:52 Assessment/Plan Lines/Catheters IV Catheter Type (from Nrsg): Saline Lock Parker in Place (from Nrsg): Yes Assessment/Plan Assessment/Plan POD # 3. Stable. -D/C to home -Pain meds -OOB with PT -ASA/SCDs -Home PT -F/u with me in 1 week Subjective 24 Hr Interval Summary Comfortable. Ready to go home today. Exam/Review of Systems Vital Signs Vitals Vital Signs Date Time Temp Pulse Resp B/P Pulse Ox O2 Delivery O2 Flow Rate FiO2 02/24/17 07:45 98.0 71 18 136/60 97 02/22/17 12:17 Room Air 02/21/17 14:50 2.0 Intake and Output 02/23/17 02/23/17 02/24/17 15:00 23:00 07:00 Intake Total 1600 ml 1430 ml Output Total 3 ml 2 ml Balance 1597 ml 1428 ml Exam Free Text/Dictation Dressing dry Incision clean, dry, and intact without redness or drainage 5/5 Tibialis Anterior, EHL, Gastroc Soleus, Peroneals Normal sensation Palpable DP/PT, CR < 2 Sec No distal edema Results Result Diagram: 02/24/17 0439 02/24/17 0439 NANY BOUDREAUX MD Feb 24, 2017 10:53
--- NOTE | 2017-02-24 11:01 | DS ---
Date/Time of Note Date/Time of Note DATE: 02/24/17 TIME: 10:59 Discharge Summary Admission/Discharge Info Admit Date/Time Feb 21, 2017 at 09:36 Discharge Date/Time February 24, 2007 11:03 AM Discharge Diagnosis s/p right TKA Patient Condition: Good Procedures Status post right total knee arthroplasty Hospital Course The patient was admitted and taken to the operating room where she underwent a right total knee arthroplasty. There were no complications. She tolerated the procedure well. She was taken to the recovery room in stable condition. She was given routine perioperative intravenous antibiotics. Her pain was controlled with oral pain medications. She was started on enteric-coated aspirin 325 mg p.o. twice daily along with sequential compression devices. She did well physical therapy. The drain was removed on postoperative day 1 and the incision inspected and noted to be clean dry and intact with no redness or drainage. She had some complaints of calf tightness on postoperative day 2 and a venous Doppler was obtained which was negative for a DVT. She remained afebrile and hemodynamically stable and neurovascularly intact. Her pain was well-controlled with oral pain medications. She was seen by physical therapy and educated on gait training and use of a frontwheel walker. By postoperative day 3 she was doing well and ready to be discharged home. Home Meds Active Scripts Pantoprazole* (Pantoprazole*) 40 Mg Tablet., 40 MG PO BID@06,18 for 40 Days, # 40 Prov:WILLIAM GARCÍA PA-C 02/22/17 Pregabalin* (Lyrica*) 50 Mg Capsule, 50 MG PO BID for 30 Days, #60 CAP Prov:WILLIAM GARCÍA PA-C 02/22/17 Tramadol HCl (Tramadol HCl) 50 Mg Tablet, 50 MG PO Q6 for 30 Days, #60 TAB Prov:WILLIAM GARCÍA PA-C 02/22/17 Hydrocodone/Acetaminophen (Hydrocodon-Acetaminoph 7.5-325) 1 Each Tablet, 1 TAB PO Q4H Y for PAIN LEVEL 1-3 for 30 Days, #60 TAB Prov:WILLIAM GARCÍA PA-C 02/22/17 Aspirin (Aspir-Talia) 325 Mg Tablet., 325 MG PO BID for 40 Days, #80 Prov:WILLIAM GARCÍA PA-C 02/22/17 Reported Medications Alendronate Sodium* (Fosamax*) 70 Mg Tablet, 70 MG PO EVERY SATURDAY, #4 TAB 02/21/17 Metformin Hcl* (Metformin Hcl* ER) 500 Mg Tab.sr.24h, 500 MG PO DAILY, #30 TAB 02/21/17 Rosuvastatin Calcium* (Crestor*) 10 Mg Tablet, 10 MG PO QHS, #30 TAB 02/21/17 Candesartan Cilexetil (Atacand) 32 Mg Tablet, 32 MG PO DAILY 08/18/12 Levothyroxine Sodium* (Synthroid*) 75 Mcg Tablet, 75 MCG PO DAILY 08/15/12 Discontinued Reported Medications Rosuvastatin Calcium* (Crestor*) 20 Mg Tablet, 20 MG PO DAILY 08/15/12 Sitagliptin Phos-Metformin Hcl (Janumet) 1 Tab Tablet, 1 TAB PO BID 08/15/12 Follow-up Plan Follow-up with Dr. Boudreaux in 1 week Primary Care Provider Jarad Casanova Pending Labs Laboratory Tests Test 02/23/17 12:43 02/23/17 17:50 02/23/17 21:15 02/24/17 04:39 Bedside Glucose 96mg/dL (70-220) 109mg/dL (70-220) 118mg/dL (70-220) Hemoglobin 10.4g/dl (12.0-16.0) Hematocrit 32.8% (37.0-47.0) Sodium Level 136mmol/L (135-144) Potassium Level 4.8mmol/L (3.5-5.1) Chloride Level 108mmol/L (97-110) Carbon Dioxide Level 23mmol/L (21-31) Anion Gap 10 (8-16) Blood Urea Nitrogen 24mg/dl (7-20) Creatinine 1.16mg/dl (0.44-1.00) Glucose Level 94mg/dl (70-220) Calcium Level 8.0mg/dl (8.4-10.2) Test 02/24/17 08:27 Bedside Glucose 85mg/dL (70-220) NANY BOUDREAUX MD Feb 24, 2017 11:01
== END 2017-02-24 14:42 | disposition home health service (06) | DRG 470 ==
LOC: REC 09:36 → MS1 23:11
PROVIDERS: ADMIT Orthopaedic Surgery; ATTEND Orthopaedic Surgery
PROC: 0SRC0J9 Replacement of Right Knee Joint with Synthetic Substitute, Cemented, Open Approach (ICD-10-PCS; principal; 2017-02-21 13:00)
DX: M17.11 Unilateral primary osteoarthritis, right knee (principal); E87.1 Hypo-osmolality and hyponatremia; E11.9 Type 2 diabetes mellitus without complications; I10 Essential (primary) hypertension; Z79.4 Long term (current) use of insulin
CPT/HCPCS: 73560; 80048; 81001; 82962; 83735; 84100; 84300; 85014; 85018; 86850; 86900; 86901; 86920; 87081; 87086; 88304; 88311; 93971; 97116; 97162; 97167; 97530; C1776; C9290; J0171; J0690; J0697; J0735; J1100; J1815; J1885; J2250; J2274; J2405; J2710; J3010; J3370; J7030; J7120

== ENCOUNTER → 2017-03-04 | Outpatient (CLI) | payer MEDICARE, OTHER ==
[~2017-03-04] MED LIST changes: +ALEN70TA30 PO; +ASPI325T32 PO; -BUPIVACAINE LIPOSOME/PF 266 MG/20 ML VIAL INFIL ONE; -CEFAZOLIN 2GM/50 ML (PMX) 50 ML X1 BEFORE INCISION IVPB ONE; -CELECOXIB 400 MG PO X1 DOSE PO ONE; +CRES10 PO; +HYDR-3605 PO; +METF500T3 PO; -PAIN COCKTAIL-CEFUROXIME IRR ONE; +PANT40TA4 PO; +PREG50CA PO; -PREGABALIN 300 MG PO X1 PO ONE; -PROPOFOL 1000 MG INJ ONE; -ROSU20TA PO; -SITA1TAB7 PO; +TRAM50TA2 PO; -TRANEXAMIC ACID 920 MG in SOD CHLORIDE 0.9% 100 ML IVPB ONE; -TRANEXAMIC ACID 920 MG in SOD CHLORIDE 0.9% 90.8 ML IV ONE; -oxyCODONE (CR) 10 MG TAB [oxyCONTIN] X1 DOSE PO ONE; -traMADOL 50 MG TAB X 1 DOSE PO ONE
--- NOTE | 2017-03-04 12:02 | PN ---
Date/Time of Note Date/Time of Note DATE: 03/04/17 TIME: 11:59 Assessment/Plan VTE Prophylaxis VTE Prophylaxis Intervention: ambulation, other Assessment/Plan Assessment/Plan ASSESSMENT: 10 days status post right total knee arthroplasty PLAN: The jose de jesus were removed today, and Steri-Strips were applied. She is to continue aspirin 325 mg twice daily for DVT prophylaxis. Additionally she is to take pain medicine as needed. She is to continue doing physical therapy with home health, focusing on overall range of motion. We will see her back in 2 weeks for a range of motion check. She is to call the office in the meantime if she has any concerns. Subjective 24 Hr Interval Summary Free Text/Dictation The patient presents today for her first postoperative evaluation. She is 10 days status post right total knee arthroplasty. She is doing well overall. She is at home and doing physical therapy with home health. Additionally she is taking aspirin twice daily for DVT prophylaxis. She is having some mild pain that is controlled with pain medication. She denies any fevers, chills. She presents today for her first postoperative evaluation. Exam/Review of Systems Exam On exam today, she is alert and oriented 4, and in no acute distress. She is ambulating with a front wheel walker. Exam of the incision demonstrates it to be clean, dry, and intact. There is no erythema, pus, erythema, or drainage noted. Range of motion is 0-70. Varus valgus forces are stable. Compartments are otherwise soft. Homans sign is negative. She is neurovascularly intact distally. IMAGING: X-rays of the right knee were obtained today and reviewed by me. They demonstrate a good alignment with no fractures or dislocations identified. WILLIAM GARCÍA PA-C Mar 04, 2017 12:02
--- NOTE | 2017-03-04 19:18 | RADRPT ---
PROCEDURE: Right knee radiographs. CLINICAL INDICATION: Right knee pain. Postop. TECHNIQUE: Two views. Frontal and lateral. COMPARISON: 02/21/2017. FINDINGS: There is no fracture or dislocation. There are anterior skin jose de jesus. There is a total right knee arthroplasty which appears satisfactory. There is no lytic or blastic lesion. There is no joint effusion. IMPRESSION: 1. Satisfactory postoperative appearance of the right knee. RPTAT: QQ .Filemon Baires MD, MD Date Time Electronically viewed and signed by .Filemon Baires MD, MD on 03/04/2017 19:18 .R/
== END | disposition home or self-care (01) ==
LOC: HKI 10:25
PROVIDERS: ATTEND Orthopaedic Surgery
DX: Z47.1 Aftercare following joint replacement surgery (principal); Z96.651 Presence of right artificial knee joint

== ENCOUNTER → 2017-03-22 | Outpatient (CLI) | payer MEDICARE, OTHER | END | disposition home or self-care (01) | LOC: HKI 10:17 | PROVIDERS: ATTEND Orthopaedic Surgery | DX: Z47.1 Aftercare following joint replacement surgery (principal); M17.11 Unilateral primary osteoarthritis, right knee; Z96.651 Presence of right artificial knee joint ==